=== PATIENT | female | born 1950 | race Caucasian/White ===

== ENCOUNTER → 2023-12-27 08:53 | Outpatient (REF) | payer MEDICARE, SELFPAY | LOC: DHCBC MAIN 08:53 | PROVIDERS: ATTENDING PHYSICIAN Internal Medicine Cardiovascular Disease; FAMILY PHYSICIAN Internal Medicine Geriatric Medicine | DX: I35.0 Nonrheumatic aortic (valve) stenosis (principal) | CPT/HCPCS: 93306 ==

== ENCOUNTER → 2024-06-17 07:30 | Outpatient (REF) | payer MEDICARE, SELFPAY | LOC: WDC 07:30 | PROVIDERS: ATTENDING PHYSICIAN Obstetrics & Gynecology Gynecology; FAMILY PHYSICIAN Internal Medicine Geriatric Medicine | DX: Z12.31 Encounter for screening mammogram for malignant neoplasm of breast (principal) | CPT/HCPCS: 77063; 77067 ==

== ENCOUNTER → 2025-01-20 07:58 | Outpatient (REF) | payer MEDICARE, SELFPAY | LOC: RCS 07:58 | PROVIDERS: ATTENDING PHYSICIAN Student in an Organized Health Care Education/Training Program; FAMILY PHYSICIAN Internal Medicine Geriatric Medicine | DX: I35.0 Nonrheumatic aortic (valve) stenosis (principal) | CPT/HCPCS: 93306 ==

== ENCOUNTER → 2025-06-24 07:39 | Outpatient (REF) | payer MEDICARE, SELFPAY | LOC: WDC 07:39 | PROVIDERS: ATTENDING PHYSICIAN Obstetrics & Gynecology Gynecology; FAMILY PHYSICIAN Internal Medicine Geriatric Medicine | DX: Z12.31 Encounter for screening mammogram for malignant neoplasm of breast (principal) | CPT/HCPCS: 77063; 77067 ==

== ENCOUNTER → 2025-07-08 14:29 | Outpatient (REF) | payer MEDICARE, SELFPAY | LOC: RCS 14:29 | PROVIDERS: ATTENDING PHYSICIAN Student in an Organized Health Care Education/Training Program; FAMILY PHYSICIAN Internal Medicine Geriatric Medicine | DX: I35.0 Nonrheumatic aortic (valve) stenosis (principal) | CPT/HCPCS: 93306 ==

== ENCOUNTER → 2025-07-30 09:12 | Outpatient (REF) | payer MEDICARE, SELFPAY ==
[2025-07-30 09:49] LABS: Hematocrit 44.3 % (37.0-47.0); Hemoglobin 14.8 g/dL (12.0-16.0); Mean Corp Hgb Conc. 33.4 g/dL (33.0-37.0); Mean Corpuscular Volume 93.5 fL (81.0-99.0); Nucleated Red Blood Cells % 0 %; Platelet Count 238 10^3/uL (130-400); Red Cell Dist. Width 13.2 % (11.5-14.5)
[2025-07-30 10:37] LABS: ALT (SGPT) 28 U/L (0-35); AST (SGOT) 25 U/L (14-36); Albumin 4.5 g/dl (3.5-5.0); Alkaline Phosphatase 95 U/L (38-126); Blood Urea Nitrogen 28 mg/dl (7-17); Calcium 10.0 mg/dl (8.4-10.2); Carbon Dioxide 29 mmol/L (22-30); Chloride 105 mmol/L (98-107); Glucose 95 mg/dl (70-99); HDL Cholesterol 80 mg/dl; LDL Cholesterol, Calculated 149 mg/dl; Potassium 5.1 mmol/L (3.5-5.1); Sodium 140 mmol/L (135-145); Total Protein 7.3 g/dl (6.3-8.2); Very Low Density Lipoprotein 24 mg/dl (0-30); eGFR > 60.00
== END ==
LOC: RAD 09:12
PROVIDERS: ATTENDING PHYSICIAN Obstetrics & Gynecology Gynecology; FAMILY PHYSICIAN Internal Medicine Geriatric Medicine; REFERRING PHYSICIAN Student in an Organized Health Care Education/Training Program
DX: M85.89 Other specified disorders of bone density and structure, multiple sites (principal); I35.0 Nonrheumatic aortic (valve) stenosis; E88.1 Lipodystrophy, not elsewhere classified
CPT/HCPCS: 36415; 77080; 80053; 80061; 85025

== ENCOUNTER → 2025-08-06 08:59 | Outpatient (REF) | payer MEDICARE, SELFPAY | LOC: RAD 08:59 | PROVIDERS: ATTENDING PHYSICIAN Student in an Organized Health Care Education/Training Program; FAMILY PHYSICIAN Internal Medicine Geriatric Medicine | DX: I35.0 Nonrheumatic aortic (valve) stenosis (principal) | CPT/HCPCS: 74174; 75572; Q9967 ==

== ENCOUNTER 2025-08-15 06:24 | Day surgery (SDC) | payer MEDICARE, SELFPAY ==
[2025-08-15] VITALS (13 sets, daily range): BP systolic 98–128; BP diastolic 61–80; BMI 23.5
--- NOTE | 2025-08-15 08:48 | ITS.CL.PN ---
Pipe Layer - Procedure Note
Procedure
Procedure Note:
CARDIAC CATHETERIZATION REPORT
Date of Procedure: 08/15/2025
Referring: Dr. Billy Houston MD
Indication: Symptomatic severe aortic valve stenosis
PROCEDURE(S)
1. right heart catheterization
2. left heart catheterization
3. coronary angiography
ACCESS
1. 6F right radial artery (closure: radial band)
2. 5F right antecubital vein (closure: manual hemostasis)
CATHETERS
1. 5F [place]
2. 6F JR4
3. 6F JL3.5
MODERATE SEDATION: 25 minutes of moderate sedation was utilized. An independent medical transcription was present to assist with and help manage the patient's level of consciousness and physiologic status.
HEMODYNAMIC DATA
LV 187/4 (EDP 16) mmHg
AO 118/62 (mean 81) mmHg
RA 7 mmHg
RV 36/0 (EDP 10) mmHg
PA 30/14 (mean 20) mmHg
PCWP 12 mmHg
SaO2 91.5%
SvO2 74.5%
Hb 13.0 g/dL
CO/CI 7.09/4.16 L/min/m2
SVR 812 dsc*-5
PVR 1.1 [place] units
CORONARY ANGIOGRAPHY
Dominance: Right
LM: Large, normal
LAD: Large vessel giving rise to several small diagonal branches. There is no coronary artery disease.
LCx: Large vessel giving rise to several small early OM branches and a large distal OM. There is no coronary artery disease.
RCA: Large vessel giving rise to a large RPDA and several small RPL branches. There is no coronary artery disease.
CONCLUSION: Normal coronary arteries, normal biventricular filling pressures and cardiac output, and high aortic valve gradeint consistent with known severe .
RECOMMENDATION: Proceed with AVR workup
Copy to: Dr. Billy Adrian MD (customer account executive); Dr. Anant Nagel MD (PCP)
Signed: Pranav Fierro MD, PhD
== END 2025-08-15 11:15 | disposition home or self-care (01) ==
LOC: CATH 06:24
PROVIDERS: ATTENDING PHYSICIAN Student in an Organized Health Care Education/Training Program; FAMILY PHYSICIAN Internal Medicine Geriatric Medicine; OTHER PHYSICIAN Student in an Organized Health Care Education/Training Program
DX: I35.0 Nonrheumatic aortic (valve) stenosis (principal)
CPT/HCPCS: 93460; 99152; 99153; C1769; C1894; Q9967

== ENCOUNTER 2025-09-18 09:31 | Inpatient (IN) | payer MEDICARE, SELFPAY ==
[2025-09-09 09:43] VITALS: BMI 23.5
[2025-09-09 10:49] LABS: Hematocrit 41.3 % (37.0-47.0); Hemoglobin 13.8 g/dL (12.0-16.0); Mean Corp Hgb Conc. 33.4 g/dL (33.0-37.0); Mean Corpuscular Volume 93.7 fL (81.0-99.0); Nucleated Red Blood Cells % 0 %; Platelet Count 275 10^3/uL (130-400); Red Cell Dist. Width 12.7 % (11.5-14.5)
--- NOTE | 2025-09-09 10:51 | CM ---
spoke to pt in PAT's, we discussed preop TAVR teaching including lifting and driving restrictions. she is prev indep, lives alone in a 1 story home with 1 step to enter. she denies any dc planning needs. she is agreeable to f/u visit from the CT
Transitional care nurses after dc. she has the TAVR educ book, soap and instructions.cm role explained and all questions answered. plan is for TAVR 09/18.
[2025-09-09 11:00] LABS: Urine Character Clear (Clear)
[2025-09-09 11:05] LABS: INR 0.93; PT 12.8 Sec (11.4-14.6)
[2025-09-09 11:30] LABS: ALT (SGPT) 25 U/L (0-35); AST (SGOT) 30 U/L (14-36); Albumin 4.4 g/dl (3.5-5.0); Alkaline Phosphatase 92 U/L (38-126); Blood Urea Nitrogen 23 mg/dl (7-17); Calcium 9.2 mg/dl (8.4-10.2); Carbon Dioxide 22 mmol/L (22-30); Chloride 103 mmol/L (98-107); Estimated Creatinine Clearance 64 ml/min; Glucose 89 mg/dl (70-99); Potassium 4.0 mmol/L (3.5-5.1); Sodium 134 mmol/L (135-145); Total Protein 7.3 g/dl (6.3-8.2); eGFR > 60.00
[2025-09-09 11:47] LABS: Urine Squamous Cell >30 /LPF (Few)
[2025-09-09 11:49] LABS: Urine Red Blood Cell 0-2 /HPF (0-2)
[2025-09-09 12:58] LABS: Glycohemoglobin (HgbA1c) 5.4 % (4.0-5.9)
[2025-09-18] VITALS (18 sets, daily range): BP systolic 91–121; BP diastolic 47–85; BMI 24.3
--- NOTE | 2025-09-18 12:17 | W.CVOR.SURPR ---
CVOR Surgeon Immed Pre Op
-
I have examined this patient prior to performance of the scheduled procedure.
The patient's condition is unchanged from the time of the dictated/written History and
Physical and the patient is able to undergo the scheduled procedure.
--- NOTE | 2025-09-18 13:32 | CM ---
Reviewed chart. Mrs. Farmer is in the operating room today. Prior to admission she resides alone in a one story home with one step to enter. Prior to admission she was independent with ambulation and adls. She does not have any DME in the home. She
has a prescription plan. Medical work-up in progress. The discharge plan is to return home with a home visit by the Transitional Care Nurse when medically stable.
[2025-09-18] MEDS: ANCEF 10 IV ×2 (13:51)
[2025-09-18 14:39] LABS: ACT-LR - POC 314 Seconds (116-155)
[2025-09-18 15:03] LABS: ACT-LR - POC 337 Seconds (116-155)
[2025-09-18 15:06] LABS: ACT-LR - POC 285 Seconds (116-155)
[2025-09-18 15:06] LABS: ACT-LR - POC 133 Seconds (116-155)
--- NOTE | 2025-09-18 15:16 | W.IMMPOSTOP ---
Surgical Immed Post Op Note
-
[id number]
STRUCTURAL HEART PROCEDURE NOTE: TAVR
Preoperative Dx:
Severe aortic stenosis with mean gradient of 55 mmHg MEREDITH of 0.8, functional bicuspid aortic valve
Osteopenia
Postoperative Dx:
Same
Acute on chronic combined systolic/diastolic CHF stemming from her severe aortic stenosis
Procedures:
1. Left CFV access with ultrasound and fluoroscopic guidance, Seldinger technique, long 6 [place] sheath placement
2. Left WOMEN'S LACROSSE COACH access with tactile, ultrasound, and fluoroscopic guidance, Seldinger technique, micropuncture sheath, limited angiography, long 6 [place] sheath placement
3. Placement of temporary RV pacing wire under fluoroscopic guidance with threshold testing
4. Placement of pigtail catheter in noncoronary cusp with limited aortography and confirmation of fluoroscopic cusp overlap views
5. Right WOMEN'S LACROSSE COACH access with tactile, ultrasound, and fluoroscopic guidance, Seldinger technique, micropuncture sheath, limited angiography, 8 [place] dilator placement
6. Perclose sutures x 2 to right WOMEN'S LACROSSE COACH, 8 [place] sheath placement
7. Placement of 14 [place] Cook sheath via right WOMEN'S LACROSSE COACH access
8. Wire purchase across stenotic aortic valve (AL-1, soft-tipped straight, table J, pigtail catheter, LVEDP assessment (33mmHg)
9. Fluoroscopic inspection of TAVR valve, properly loaded
10. Lunderquist wire placement into LV
11. Pre-TAVR BAV with 20 mm true balloon x 2
12. Right transfemoral TAVR with placement of 29 mm Evolut Fx+ (no recaptures)
13. Post TAVR aortography
14. Post TAVR TTE assessment (mean gradient 7 mmHg, trace PVL)
15. Post TAVR BAV with 22 mm true balloon x 1
16. Post TAVR repeat TTE assessment (mean gradient 4 mmHg, no PVL)
17. Removal of Cook sheath with right WOMEN'S LACROSSE COACH management with Perclose sutures x 2, manual pressure (protamine administration)
18. Completion right iliofemoral angiography
19. Removal of temporary pacing wire
20. Removal of left WOMEN'S LACROSSE COACH 6 [place] sheath with management with 6 [place] Angio-Seal, manual pressure
21. Removal of left CFV 6 [place] sheath with management with manual pressure
Transfer Table Operator:
Dr. Pranav Fierro
Cardiac Surgeon:
Dr. Antoine Sherman
Anesthesia:
Initially MAC, converted to general with LMA prior to start of procedure
Local to bilateral groins
Implants:
Medtronic Evolut Fx+ 29 mm TAVR valve, serial number: [id number]
Perclose x 2 to right WOMEN'S LACROSSE COACH
6 [place] Angio-Seal to left WOMEN'S LACROSSE COACH
Cath data:
Start: 1403hrs, Deploy: 1449hrs, End: 1513hrs
FT: 15.7min, mGy: 259, DAP: 22.8, Contrast: 80
Post-TTE: mean gradient 4mmHg, no AI/PVL
Complications:
None
Condition:
Stable/guarded to CVICU
[2025-09-18] MEDS: LEVOPHED 250 IV (16:02)
--- NOTE | 2025-09-18 17:19 | ITS.CL.PN ---
Wheel Inspector - Procedure Note
Procedure
Procedure Note:
TRANSCATHETER AORTIC VALVE REPLACEMENT REPORT
Date of Procedure: 09/18/2025
Referring: Dr. Billy Adrian MD
Indication: Symptomatic severe aortic valve stenosis
Operators: Pranav Fierro MD, PhD (interventional cardiology); Antoine Sherman MD (CT surgery)
Anesthesia: conscious sedation provided by the anesthesia staff
PROCEDURE: transfemoral, transcatheter aortic valve replacement with a 29 mm Medtronic Evolut FX+
ACCESS:
1. 6F left femoral vein (closure: manual hemostasis) - Ultrasound was utilized for vascular access. The vessel was visualized under ultrasound and noted to be patent. An image of the vessel was stored permanently in the patient's medical record.
Under direct ultrasound guidance, vascular access was obtained using a modified Seldinger technique and a 6 [place] sheath was placed.
2. 6F left common femoral artery (closure: Angioseal) - Ultrasound was utilized for vascular access. The vessel was visualized under ultrasound and noted to be patent. An image of the vessel was stored permanently in the patient's medical record.
Under direct ultrasound guidance, vascular access was obtained using a modified Seldinger technique and a 6 [place] sheath was placed.
3. 14F right common femoral artery (closure: Perclose x2) - Ultrasound was utilized for vascular access. The vessel was visualized under ultrasound and noted to be patent. An image of the vessel was stored permanently in the patient's medical
record. Under direct ultrasound guidance, vascular access was obtained using a modified Seldinger technique and a 6 [place] sheath was placed.
HEMODYNAMIC DATA
LVEDP 33
PROCEDURE NARRATIVE:
The patient was prepped and draped in standard sterile fashion. Conscious sedation was provided by the anesthesia staff. 6F left femoral vein and left common femoral artery access was obtained with ultrasound guidance using micropuncture technique
with verification of appropriate arteriotomy location via hand injection angiography. A temporary venous pacing wire was advanced via the left femoral vein to the right ventricle under fluoroscopic guidance with appropriate capture verified. A 5F
pigtail catheter was advanced via the left common femoral artery and seated in the non-coronary cusp. Angiography was performed to verify the cusp overlap angle.
8F right common femoral artery access was obtained with ultrasound guidance using micropuncture technique with verification of appropriate arteriotomy location via hand injection angiography. The arteriotomy was preclosed with two Perclose sutures
followed by replacement of the 8F sheath. Using an AL1 catheter, a Lunderquist wire was placed in the descending thoracic aorta. A 12F dilator was advanced over the Lunderquist wire followed by placement of a 14F Cook sheath. Heparin 5500 units was
given. The AL1 catheter was re-advanced through the sheath to the level of the ascending aorta. The Lunderquist wire was exchanged for a soft tipped straight wire which was used to cross the aortic valve and deposit the AL1 in the LV apex. A J-wire
was used to exchange the AL1 for a pigtail catheter in the LV and LVEDP was measured. The Lunderquist wire was advanced through the pigtail catheter and seated in the LV apex. ACT was checked and confirmed to be >300 seconds.
A 20 mm True valvuloplasty balloon was advanced over the Lunderquist wire and into the aortic annulus. Valvuloplasty was performed under rapid pacing with good balloon expansion. The valvuloplasty balloon was removed.
The valve was inspected under fluoroscopy to confirm lack of infolding above the 4th node. The Cook sheath was removed, and the in-line sheath was advanced over the Lunderquist wire into the descending aorta. The valve was then advanced over the
aortic arch and into the left ventricle. In the cusp overlap view, the valve was slowly deployed to the point of flowering. The patient was paced to adequately lower pulse pressure as the valve was deployed through the rumble strips to 80%.
Injection demonstrated a non-coronary cusp implant depth of 3 mm. Angiography performed in an PRYDEINIG projection demonstrated left coronary cusp implant depth of 3 mm. The decision was made to proceed with full deployment. The Lunderquist wire was
partially withdrawn to lift the nose cone of the valve delivery device. In the PRYDEINIG view, the delivery handle was slowly rotated until both paddles were released from the superior aspect of the valve. The delivery device was withdrawn to the
descending aorta and re-assembled. The patient was resuscitated by anesthesia with recovery of adequate blood pressure. Telemetry demonstrating sinus rhythm. Aortography demonstrated good valve positioning, adequate coronary filling, and no aortic
valve insufficiency. The valve appeared constrained at the inflow and annular level. Echocardiography confirmed no aortic insufficiency. Mean valve gradient was 7 mmHg. The decision was made to proceed with balloon valvuloplasty to optimize
hemodynamics and valve expansion.
The valve delivery system was removed and exchanged over the Lunderquist wire for the 14 [place] sheath after which a 22 mm True balloon was advanced across the valve and inflated under rapid pacing with dramatic improvement in valve expansion. The
balloon was removed carefully from the valve after which the Lunderquist wire was removed. Repeat echocardiography demonstrated gradient reduction to 4 mmHg.
The 14 [place] sheath was removed, and hemostasis obtained with the two Perclose sutures. Protamine 30 mg was given. Aortoiliac angiography demonstrated no evidence of iliofemoral dissection/perforation and good runoff below the common femoral artery
bilaterally. The pacemaker and the pigtail catheter were removed. The left femoral artery sheath was removed using a 6F Angioseal. The left femoral venous sheath was removed with manual pressure.
CONCLUSIONS
1. successful placement of a 29 mm Medtronic Evolut FX+ transcatheter aortic valve via right transfemoral approach with no acute complications
2. acute on chronic systolic heart failure with elevated filling pressures (LVEDP = 33)
Copy to: Dr. Billy Adrian MD (data integrity analyst); Dr. Gucci Nagel MD (PCP)
Signed: Pranav Fierro MD, PhD
--- NOTE | 2025-09-18 18:02 | PTCARENOTE ---
Rec'd Pt around 1700, A,A+OX3, denies pain, neuro check WNL, VSS. Pt on bedrest, instructed to keep her legs straight and head on pillow. Bilat femoral dsgs D+I.
[2025-09-18] MEDS: ANCEF 5 IV (22:07)
--- NOTE | 2025-09-18 23:49 | PTCARENOTE ---
Received pt at change of shift resting in bed. pt OOB w/ RN after bedrest was completed. SR on tele, HR 70's-80's. b/l groin sites C/D/I, no bleeding or hematoma noted at this time. R pedal pulse normal, L pedal pulse present w/ doppler. pt denies
any CP or SOB at this time. SCD's applied to pt. Encouraged pt to call RN w/ any questions/concerns. Call murry within reach.
[2025-09-19] VITALS: BP 107/46
[2025-09-19 01:48] VITALS: BP 118/56
[2025-09-19 02:26] LABS: Hematocrit 37.7 % (37.0-47.0); Hemoglobin 12.5 g/dL (12.0-16.0); Mean Corp Hgb Conc. 33.2 g/dL (33.0-37.0); Mean Corpuscular Volume 95.0 fL (81.0-99.0); Platelet Count 226 10^3/uL (130-400); Red Cell Dist. Width 12.7 % (11.5-14.5)
[2025-09-19 02:47] LABS: Blood Urea Nitrogen 19 mg/dl (7-17); Calcium 8.8 mg/dl (8.4-10.2); Carbon Dioxide 21 mmol/L (22-30); Chloride 109 mmol/L (98-107); Estimated Creatinine Clearance 70 ml/min; Glucose 126 mg/dl (70-99); Potassium 4.2 mmol/L (3.5-5.1); Sodium 136 mmol/L (135-145); eGFR > 60.00
[2025-09-19 05:38] VITALS: BP 104/59
[2025-09-19 06:00] VITALS: BMI 24.2
[2025-09-19 08:00] VITALS: BP 112/61
--- NOTE | 2025-09-19 08:40 | W.PN.CT ---
Today's Communication / Plan
-
-pod #1
-no issues overnight
-pt denies any SOB or MARQUES
-1s degree AVB post TAVR - resolved.
-no jozef or pauses overnight, some PVCs
-Echo today
-continue current meds
-possible d/c
Assessment / Plan
-
- Severe symptomatic - s/p Pre-TAVR BAV with 20 mm true balloon x 2 followed by Right transfemoral TAVR with placement of 29 mm Evolut Fx+ (no recaptures) and Post TAVR BAV with 22 mm true balloon x 1 on 09/18/22, pod #1
- Post-TTE: mean gradient 4mmHg, no AI/PVL
- Acute on chronic combined systolic/diastolic CHF stemming from her severe aortic stenosis, LVEDP 33mmHg
- Osteopenia
- Carotid stenosis
- Breast augmentation
- Abdominoplasty
- Cataracts b/l
- Non-smoker
Discussed patient care with: Nursing and Care Team
Subjective
-
Date of Service: September 19, 2025
Objective Data
-
Lab Results
09/19/25 02:09
09/19/25 02:09
PT 12.8 Sec (11.4-14.6) 09/09/25 09:36
INR 0.93 09/09/25 09:36
Vital Signs
Vital Signs
Temp Pulse Resp BP Pulse Ox
98.4 F 66 20 104/59 95
09/19/25 08:00 09/19/25 06:00 09/19/25 08:00 09/19/25 05:38 09/19/25 08:00
CT Intake/Output/Weight
09/18/25 09/19/25 09/19/25
18:59 06:59 18:59
Intake Total 1300 / 1780 480 / 1780
Output Total 300 / 300
Balance 1000 / 1480 480 / 1480
SaO2: 95
Physical Exam
-
General: Awake and AOx3
Cardiovascular: No Murmurs and No Rub
Respiratory: Decreased Breath Sounds
Sternum: Stable
Incision: Clean (groins are cdi, soft, nontender, no hematoma b/l), Dry and Intact
Extremities: Edema +1
Data Reviewed
-
Lab Results: Results Reviewed
Medications: Active Meds Reviewed
Chest X-Ray: Report Reviewed and Image Reviewed
ECG: Report Reviewed and Image Reviewed
--- NOTE | 2025-09-19 09:15 | CM ---
Reviewed chart. Met with Mrs. Farmer to review discharge plans. She states she is feeling well and maybe able to go soon. She states prior to admission she resides in [address] She states she has a one story
home with one step to enter. She states prior to admission she was independent with ambulation and adls. She states she does not have any DME in the home. She states her twin sister will stay with her tonight. Her sister resides fifteen minutes
away and they talk daily. She states her brother also resides fifteen minutes and he also call to check on her. She states she has supportive neighbors also. She states she has a prescription plan. We reviewed a home visit by the Transitional Care
Nurse. She is agreeable to a home visit. Medical work up in progress. The discharge plan is to return home with her sister staying the night tonight and a home visit by the Transitional Care Nurse when medically stable.
[2025-09-19] MEDS: LOW STRENGTH ASPIRIN 81 MG PO (09:30)
[2025-09-19 11:16] VITALS: BP 110/69
--- NOTE | 2025-09-19 12:04 | W.DCSUMMARY ---
Discharge Summary
Discharge Data
Date of Admission: 09/18/25
Date of Discharge: 09/19/25
-
Pending Results: No
Hospital Course
Primary care physician: Dr. Shona Ny
Outpatient vice president: Dr. Michael Adrian
Inpatient consultants: [facility]
Procedures:
1. Pre-TAVR BAV (20 mm true balloon) followed by Right Transfemoral TAVR (29 mm MDT Evolut Fx+, no recaptures) and post-TAVR BAV (22 mm true balloon x 1) on 09/18/[address] Pranav Fierro & Dr. Antoine Sherman
Primary Diagnosis:
1. Severe, symptomatic Aortic Stenosis
Secondary Diagnoses:
1. Acute on chronic combined systolic/diastolic CHF stemming from severe , LVEDP 33 mmHg
2. Osteopenia
3. Carotid stenosis
4. Breast Augmentation
5. Abdominoplasty
6. Cataracts B/L
HPI: Ms. Farmer is a 74-year-old female who presented as an outpatient for AVR secondary to severe, symptomatic aortic stenosis. After evaluation with the structural heart team at [facility] she was referred for TAVR. Please see preoperative history and
physical for complete presentation prior to procedure.
Hospital course: Patient was electively admitted on 09/18/[address] Antoine Sherman and Dr. Pranav Colon. She successfully underwent TAVR via right femoral artery with pre-TAVR BAV (20 mm true balloon) followed by Right Transfemoral
TAVR (29 mm MDT Evolut Fx+, no recaptures) and post-TAVR BAV (22 mm true balloon x 1). Please see interventional list and surgeons postoperative notes for complete details of procedure. Intraoperatively, there were no significant events and the
patient went directly to [facility] recovery. Bilateral groin sites remained stable and she was transferred to the interventional unit for the remainder of her recovery. Her initial postoperative TTE reported hyperdynamic LV systolic function with
EF 70-75%, TAVR with initial P/M of 14/7, respectively, with trace AI, then P/M 11/4, respectively, without AI following post-deployment BAV. Initial postoperative EKG showed sinus rhythm with prolonged QT (410) and 1st degree AVB (CHAN 204). She
endorsed no issues overnight.
On postoperative day 1, CXR showed mild atelectasis in left lung baseEKG showed normal sinus rhythm with shortened QT and resolution of first-degree AV block.. TTE reported normal biventricular size/function, NRWMA, EF 65-70%, TAVR with P/M 15/8,
respectively, no AI, trivial pericardial effusion near R ventricular apex. Patient was tolerating their diet, physical activity, and able to perform ADL's independently. She was evaluated by Cardiology with no further medications to be added to
current regiment. She will continue ASA 81 mg daily with TAVR valve. She reported redness on bilateral cheeks which appeared to be superficial skin tear related to tape from ETT during procedure. She was instructed to apply Aquaphor as needed.
She was deemed eligible for discharge to home with plan to follow-up with her outpatient vice president in 4-weeks. She was ordered to obtain an outpatient TTE at 30-days s/p TAVR. Home medications were resumed without issue. She will be followed by
transitional care nursing within 2 to 3 days from discharge. The importance of antibiotics for endocarditis prophylaxis was discussed prior to discharge.
Home medication changes:
- Addition of PRN Tylenol if needed for mild pain/CAPONE/fever
Discharge Plan
-
Patient Disposition: Home (Routine Discharge)
Discharge Diagnosis/Procedures: Aortic Stenosis s/p Right Transfemoral-TAVR (29 mm Evolut Fx+) with pre-TAVR BAV (20 mm true balloon x 2) and post TAVR BAV (22 mm true baloon x 1) with Dr. Pranav Fierro & Dr. Antoine Sherman on 09/18/25
Condition: Good
Diet: Low Cholesterol and 2 Gram Sodium
Activity: As tolerated
Additional Activity: No heavy lifting anything greater than 10 pounds for 1-week.
Driving Restrictions: No driving for 1 week
Bathing Restrictions: OK to Shower
Others Tests: 30 Day Follow Up Echocardiogram:10/20/2025 at 1:00pm at [facility]
Other Services: Cardiac Rehab
Wound Care: Please do not apply lotions, creams or powders to groin areas.
Please monitor for increased pain, swelling redness or drainage.
Notify the Cardiac Surgery Office if any procedural site issues occur.
Apply Aquaphor or A&D ointment to redness on cheeks/suspected skin abrasion.
Specialty Instructions: Weigh Daily- Call MD for wt gain/loss 3 lbs overnight/5 lbs in 1 week
Activity Restrictions/Additional Instructions:
- You will need to take antibiotics prescribed by your Construction Site Manager prior to any dental procedures (including cleanings) for endocarditis prophylaxis (prevention of bacterial infection on prosthetic valve).
Referrals:
CT Transitional Care Nurse [Outside] - in one to two days
Referral Note:
The Cardiothoracic Transitional Care Nurse will call you to set up a visit in 1-2 days.
[facility]. Cardiac Rehab [Outside]
Referral Note: Cardiac Rehab Orientation appointment and� First Exercise appointment is on 10/13/2025 at 10:00. The Cardiac Rehab gym is located on the first floor of the [facility].
Renate Tatum CRNP [Specified Professional Personl, Cardiology] - 10/22/25 11:20 am
Anant Nagel MD [Family Provider, Internal Medicine] - in four to six weeks
Referral Note: Please make an appointment in four to six weeks.
Prescriptions:
New
acetaminophen 325 mg Tablet
650 mg PO Q4HPRN PRN (Reason: CAPONE, mild pain, or fever >101F) Qty: 0 0RF
Continued
alendronate [Fosamax] 70 mg Tablet
70 mg PO SOLIS Qty: 0 0RF
Rx Instructions:
QSUNDAY
aspirin 81 mg Tablet,Chewable
81 mg PO DAILY Qty: 0 0RF
Discharge Orders:
Discharge Patient (As Directed); Ordered 09/19/25
Ordered By: Jeannette Lugo
Care Plan Goals
Care Plan Goals:
Problem: Readiness for enhanced knowledge related to diagnosis and treatment plan
Goal: Understand your diagnosis and treatment plan needs, including medications if applicable.
Instructions: Know your diagnosis, underlying causes and treatment plan options, including medications if applicable. Consult with your health care team to learn about your diagnosis and treatment plan, including medications if applicable.
Discharge Date and Time
Print Language: KHMER
--- NOTE | 2025-09-19 12:38 | W.PN.CD ---
Today's Communication / Plan
-
d/c
Impression / Plan
-
74F with severe symptomatic POD1 s/p Evolut 29 mm TAVR with excellent result.
No issues post operatively or overnight. Stable in sinus rhythm.
Ambulated this morning without issues.
Labs stable.
EKG NSR
TTE reviewed:
1. Normal biventricular size and systolic function, with no regional wall motion abnormalities. Estimated LVEF 65-70%.
2. S/p TAVR. Medtronic Evolut 29. Peak/mean gradients are 15/8mmHg. No evidence of aortic regurgitation.
3. Trivial pericardial effusion near right ventricular apex.
4. Compared to 09/18/25: prior TAVR gradients were 11/4 mmHg with no aortic valve regurgitation. Trivial pericardial effusion is now visualized near RV apex.
Plan:
- routine post-TAVR discharge
- asa
- 1 month echo
- f/u with Dr. Adrian
Physical Exam
Vital Signs/Labs
Vital Signs
Temp Pulse Resp BP Pulse Ox
36.9 C 66 20 104/59 95
09/19/25 08:00 09/19/25 06:00 09/19/25 08:00 09/19/25 05:38 09/19/25 08:48
09/18/25 09/19/25 09/20/25
06:59 06:59 06:59
Actual Weight 65 kg
09/19/25 02:09
09/19/25 02:09
PT 12.8 Sec (11.4-14.6) 09/09/25 09:36
INR 0.93 09/09/25 09:36
09/09/25
09:35
Lik-L-Eakiygubyzl Pept 228
Physical Exam
Constitutional: Comfortable
Cardiovascular: Rhythm & rate is regular
Respiratory: Respiratory effort normal
Neuro/Psych: AO x 3
Other: Cath Site
cdi
Data Reviewed
-
Date of Service: September 19, 2025
Medical Decision Making: Reviewed Test Results
EKG: Tracing Personally Visualized and interpreted
Echo: Tracing Personally Visualized and interpreted
Labs: Labs Reviewed by me
[2025-09-19 13:11] VITALS: BP 115/66
--- NOTE | 2025-09-19 16:35 | PTCARENOTE ---
pt c/o flush face feeling and redness, notified Jeannette Lugo NP. Aquaphor ordered at d/c.
d/c instructions read to pt and pt verbalized understanding. iv and tele removed. pt left with belongings from room. pt left via wheelchair w/ staff member.
== END 2025-09-19 16:39 | disposition home or self-care (01) | DRG 266 ==
LOC: IVU 09:31
PROVIDERS: Physician Assistant Medical; ADMITTING PHYSICIAN Student in an Organized Health Care Education/Training Program; ATTENDING PHYSICIAN Thoracic Surgery (Cardiothoracic Vascular Surgery); CONSULT PHYSICIAN Student in an Organized Health Care Education/Training Program; FAMILY PHYSICIAN Internal Medicine Geriatric Medicine
PROC: 02RF38Z Replacement of Aortic Valve with Zooplastic Tissue, Percutaneous Approach (ICD-10-PCS; 2025-09-18)
DX: I35.0 Nonrheumatic aortic (valve) stenosis (principal); Z00.6 Encounter for examination for normal comparison and control in clinical research program; I50.43 Acute on chronic combined systolic (congestive) and diastolic (congestive) heart failure; M85.80 Other specified disorders of bone density and structure, unspecified site; I44.0 Atrioventricular block, first degree; I49.3 Ventricular premature depolarization
CPT/HCPCS: 33361; 36415; 71045; 71046; 80048; 80053; 81003; 81015; 82248; 83036; 83880; 85025; 85027; 85347; 85610; 86850; 86900; 86901; 87070; 93005; 93308; 93321; 93325; C1726; C1760; C1769; C1894; Q9967

== ENCOUNTER 2025-11-11 15:58 | Outpatient (RCR) | payer MEDICARE, SELFPAY | END 2025-11-11 23:59 | disposition home or self-care (01) | LOC: CRHB 15:58 | PROVIDERS: ATTENDING PHYSICIAN Student in an Organized Health Care Education/Training Program | DX: Z95.4 Presence of other heart-valve replacement (principal) | CPT/HCPCS: 93306; G0422; G0423 ==